=== PATIENT | female | born 1970 | race Caucasian/White ===

== ENCOUNTER 2016-11-07 13:46 | Emergency (ER) | payer OTHER ==
[~2016-11-07 13:46] MED LIST: FLEXERIL10 MG PO; MEDROL PO; MOBIC PO; MOTRIN400 M1 PO; NAPROSYN-EC500 M1 DOB; NO MEDICATIONS; NORCO 5/325 TAB1 TAB; ORUDIS75 M1 PO; ULTRAM PO; VICODIN 5/500 T1 TAB PO; VICODIN ES 7.51 EAC1 PO
== END 2016-11-07 15:01 | disposition left against medical advice (07) ==
LOC: SED 13:46
DX: Z53.21 Procedure and treatment not carried out due to patient leaving prior to being seen by health care provider (principal)